=== PATIENT | male | born 1995 | race Caucasian/White ===

== ENCOUNTER 2022-08-09 17:43 | Emergency (ER) | payer OTHER ==
[~2022-08-09] VITALS: Ht 175.3 cm; Wt 74.3 kg
--- NOTE | 2022-08-10 11:35 | EKG ---
[facility] [address] [facility] [place] [address] Signed Normal sinus rhythm with sinus arrhythmia Normal ECG No previous ECGs available Confirmed by MARTHA ALEXANDRE MD ([id number]) on 08/10/2022 11:35:09 AM Electronically Signed By: MARTHA ALEXANDRE MD 08/10/22 1135 PATIENT NAME: MEGHAN DEAN Electrocardiogram DATE OF : [birth year] PHYSICIAN: MARTHA ALEXANDRE MD REPORT #: [id number] REPORT IS CONFIDENTIAL AND NOT TO BE RELEASED WITHOUT AUTHORIZATION
== END 2022-08-09 20:45 | disposition home or self-care (01) ==
LOC: ED 17:43
DX: R00.2 Palpitations (principal); R07.89 Other chest pain; K21.9 Gastro-esophageal reflux disease without esophagitis
CPT/HCPCS: 36415; 71045; 80053; 83735; 84484; 85025; 85379; 86140; 93005; 93010; 99285-25

== ENCOUNTER 2023-12-02 07:34 | Day surgery (SDC) | payer BC ==
[~2023-12-02] VITALS: Ht 175.3 cm; Wt 72.7 kg
[~2023-12-02 07:34] MED LIST: ANUSOL-HC25 MG PR; IBLOOD GLUCOSE TEST STRIP 1 EA TEST VI PRN; LACTATED RINGER'S 1,000 ML IV SCH; LIDOCAINE HCL 1% 5 ML SDV INJ ONE; MAGNESIUM400 MG PO; MIDAZOLAM HCL 5 MG/5 ML VIAL IV PRN; MIRALAX17 GM PO; MULTIPLE VITAM1 EAC2 PO; OMEGA 3 1,0001 EACH PO; fentaNYL citrate 100 MCG/2 ML VIAL IV PRN
[2023-12-02 07:55] VITALS: BP 128/67
--- NOTE | 2023-12-02 08:28 | NUR ---
0810-PATIENT FEELING DIZZY AND HOT WITH IV START. HOB LOWERED AND COOL CLOTH APPLIED TO FOREHEAD. 0825-PATIENT FEELING BETTER. HOB ELEVATED. COOL CLOTH ON FOREHEAD. CALL LIGHT WITHIN REACH. NO OTHER NEEDS AT THIS TIME.
--- NOTE | 2023-12-02 08:55 | NUR ---
0810-PATIENT STATES FEELING FINE. NO OTHER NEEDS AT THIS TIME. AT BEDSIDE.
[2023-12-02] MEDS ORDERED: MIDAZOLAM HCL 5 MG/5 ML VIAL ONE (09:08)
[2023-12-02] MEDS ORDERED: fentaNYL citrate 100 MCG/2 ML VIAL ONE (09:09)
--- NOTE | 2023-12-02 09:55 | NUR ---
12/02/23 0955 Jennifer Day 0948 PT TO PACU ALERT AND AWAKE DENIES PAIN, PT ASKING FOR HIS GLASSES. PT TAKING SIPS OF WATER TOLERATES WELL.
[2023-12-02 10:13] VITALS: BP 118/98
--- NOTE | 2023-12-02 10:30 | OR ---
[facility] [address] [place], [place] [address] Signed DATE OF OPERATION: 12/02/2023 SURGEON: Demario Mayers MD PREOPERATIVE DIAGNOSES: 1. Chronic recurring posterior midline anal fissure. 2. Irritable bowel syndrome with constipation and diarrhea. 3. Intermittent rectal bleeding with bowel movements. POSTOPERATIVE DIAGNOSES: 1. Chronic healed posterior midline anal fissure. 2. Minimal internal hemorrhoids. PROCEDURE: Colonoscopy with cold biopsies of the cecum, terminal ileum x2, right colon, transverse colon, left colon, sigmoid colon and rectum. ESTIMATED BLOOD LOSS: None. INDICATIONS: Meghan is a 28-year-old gentleman, who was asked to see me for a colonoscopy. He has had a chronic recurring posterior midline anal fissure. He describes a sentinel pile, but I did not see that today. He has been online reading and made himself very knowledgeable. He has a conservative regimen that he follows that seems to work out very nicely. He has also convinced himself that he has irritable bowel syndrome alternating with constipation and diarrhea. He still has some intermittent rectal bleeding. He is also worried about Crohn's disease having read that on the Internet. He has been through lidocaine, Anusol, MiraLAX and nitroglycerin ointment. We can no longer get diltiazem ointment here in [place], [place]. To his knowledge, he has never had a Botox injection. He was asked to see me for a colonoscopy. He said there is no family history of colon cancer, polyps or inflammatory bowel disease. In the office, I had given him a pamphlet on colonoscopy. We reviewed the nature of the test. There is risk including, but not limited to gas bloating, crampy abdominal pain, bleeding, perforation requiring surgery, and missed diagnosis. We also reviewed the need for IV conscious sedation. He had expressed understanding and wished to proceed. DESCRIPTION OF PROCEDURE: Meghan was taken into our endoscopy suite and placed in the left lateral decubitus position. He was given monitored anesthesia care with 10 mg of Versed and 200 mcg of Electronically Signed By: DEMARIO MAYERS MD 12/02/23 1030 PATIENT NAME: MEGHAN DEAN OPERATIVE REPORT DATE OF : [birth year] REPORT #: [id number] PHYSICIAN: DEMARIO MAYERS MD PCP: TESHA CHING PA-C REPORT IS CONFIDENTIAL AND NOT TO BE RELEASED WITHOUT AUTHORIZATION [facility] [address] [place], [place] [address] Signed fentanyl. We used our colonoscope to look at the anus with gentle traction sure enough he has a chronic but healed posterior midline anal fissure. There is really no sentinel pile. He has good sphincter tone. There were no masses. After this, the adult colonoscope was introduced and advanced under direct visualization of the camera into the cecum itself. His prep was quite excellent. We turned the camera and went up to the terminal ilium about 10 to 15 cm. We took pictures throughout for photodocumentation. We went ahead and took cold biopsies x2 in the terminal ileum. We then took additional biopsies throughout the cecum, right colon, transverse colon, left colon, sigmoid colon, and mid right colon. There were no polyps. There were no inflammatory changes. There was no diverticulosis. Once in the rectum, the scope was retroflexed and really he has very minimal internal hemorrhoid tissue. After this, the gas was suctioned out and the colonoscope removed. Meghan tolerated the procedure quite well. RECOMMENDATIONS: I will see Meghan back in my office in 7 to 14 days to review his results. Demario Mayers MD ALB/MODL /[id number] cc: MD Tesha Cota PA-C Copies: DEMARIO MAYERS MD, CHLOE K PA-C ~ Electronically Signed By: DEMARIO MAYERS MD 12/02/23 1030 PATIENT NAME: MEGHAN DEAN OPERATIVE REPORT DATE OF : [birth year] REPORT #: [id number] PHYSICIAN: DEMARIO MAYERS MD PCP: TESHA CHING PA-C REPORT IS CONFIDENTIAL AND NOT TO BE RELEASED WITHOUT AUTHORIZATION
--- NOTE | 2023-12-04 16:42 | PATH ---
[facility] [address] [facility] [place], [place] [address] Signed SPECIMEN(S): A CECUM COLON BIOPSY SPECIMEN(S): B TERMINAL ILEUM SPECIMEN(S): C ASCENDING COLON BIOPSY SPECIMEN(S): D TRANSVERSE COLON BIOPSY SPECIMEN(S): E DESCENDING COLON BIOPSY SPECIMEN(S): F SIGMOID COLON BIOPSY SPECIMEN(S): G RECTUM SPECIMEN SOURCE: A. CECUM COLON BIOPSY B. TERMINAL ILEUM C. ASCENDING COLON BIOPSY D. TRANSVERSE COLON BIOPSY E. DESCENDING COLON BIOPSY F. SIGMOID COLON BIOPSY G. RECTUM CLINICAL HISTORY: Anal fissure, IBS, rectal bleeding/diarrhea FINAL PATHOLOGIC DIAGNOSIS: A. Cecum colon biopsy: - Polypoid fragment of benign colonic mucosa, negative for pathologic inflammation or epithelial dysplasia. B. Terminal ileum, biopsy: - Benign small bowel-type mucosa, negative for specific diagnostic abnormality. C. Ascending colon biopsy: - Benign colonic mucosa, negative for specific diagnostic abnormality. D. Transverse colon biopsy: - Benign colonic mucosa, negative for specific diagnostic abnormality. E. Descending colon biopsy: - Benign colonic mucosa, negative for specific diagnostic abnormality. F. Sigmoid colon biopsy: - Benign colonic mucosa, negative for specific diagnostic abnormality. G. Rectum, biopsy: - Benign colonic mucosa, negative for specific diagnostic abnormality. JVR:smn MICROSCOPIC EXAMINATION: Histologic sections of all submitted blocks are examined by light microscopy. PATIENT NAME: MEGHAN DEAN PATHOLOGY DATE OF : [birth year] REPORT #: [id number] PHYSICIAN: VERN ARIZMENDI PCP: EDITA CHING PA-C REPORT IS CONFIDENTIAL AND NOT TO BE RELEASED WITHOUT AUTHORIZATION [facility] [address] [place], [place] [address] Signed These findings, together with the gross examination, support the pathologic diagnosis. GROSS DESCRIPTION: A. The specimen, labeled and designated "[place], cecum colon biopsy," is received in formalin and consists of one houser soft tissue fragment, 0.2 cm. Entirely submitted in (A1). B. The specimen, labeled and designated "[place], terminal ileum biopsy," is received in formalin and consists of two houser soft tissue fragments, ranging from 0.3-0.4 cm. Entirely submitted in (B1). C. The specimen, labeled and designated "[place], ascending colon biopsy," is received in formalin and consists of one houser soft tissue fragment, 0.3 cm. Entirely submitted in (C1). D. The specimen, labeled and designated "[place], transverse colon biopsy," is received in formalin and consists of one houser soft tissue fragment, 0.3 cm. Entirely submitted in (D1). E. The specimen, labeled and designated "[place], descending colon biopsy," is received in formalin and consists of one houser soft tissue fragment, 0.3 cm. Entirely submitted in (E1). F. The specimen, labeled and designated "[place], sigmoid colon biopsy," is received in formalin and consists of one houser soft tissue fragment, 0.3 cm. Entirely submitted in (F1). G. The specimen, labeled and designated "[place], rectum biopsy," is received in formalin and consists of one houser soft tissue fragment, 0.2 cm. Entirely submitted in (G1). VB (under the direct supervision of a pathologist) The Gross Description was prepared using a voice recognition system. The report was reviewed for accuracy; however, sound-alike word errors, addition and/or deletions may occur. If there is any question about this report, please contact Client Services. PERFORMING LABORATORY: Technical component was performed by [facility], [address] [place] [id number] (CLIA# [id number]). Professional interpretation was performed by [facility] - [facility], [address] [place], [place] [address]., [place] [address] (CLIA#: [id number]). Diagnostician: Elías Couch MD Pathologist Electronically Signed 12/04/2023 PATIENT NAME: MEGHAN DEAN PATHOLOGY DATE OF : [birth year] REPORT #: [id number] PHYSICIAN: VERN PATHOLOGY PCP: EDITA CHING PA-C REPORT IS CONFIDENTIAL AND NOT TO BE RELEASED WITHOUT AUTHORIZATION [facility] [address] [place] [address] [place], [place] [address] Signed Copies: ~ PATIENT NAME: MEGHAN DEAN PATHOLOGY DATE OF : [birth year] REPORT #: [id number] PHYSICIAN: VERN ARIZMENDI PCP: EDITA CHING PA-C REPORT IS CONFIDENTIAL AND NOT TO BE RELEASED WITHOUT AUTHORIZATION
== END 2023-12-02 10:20 | disposition home or self-care (01) ==
LOC: OPS 07:34 → DS 07:34 → OPS 10:20
PROVIDERS: ATTEND Colon & Rectal Surgery
PROC: 0DBL8ZX Excision of Transverse Colon, Via Natural or Artificial Opening Endoscopic, Diagnostic (ICD-10-PCS; 2023-12-02)
PROC: 0DBN8ZX Excision of Sigmoid Colon, Via Natural or Artificial Opening Endoscopic, Diagnostic (ICD-10-PCS; 2023-12-02)
PROC: 0DBF8ZX Excision of Right Large Intestine, Via Natural or Artificial Opening Endoscopic, Diagnostic (ICD-10-PCS; 2023-12-02)
PROC: 0DBG8ZX Excision of Left Large Intestine, Via Natural or Artificial Opening Endoscopic, Diagnostic (ICD-10-PCS; 2023-12-02)
PROC: 0DBB8ZX Excision of Ileum, Via Natural or Artificial Opening Endoscopic, Diagnostic (ICD-10-PCS; 2023-12-02)
PROC: 0DBH8ZX Excision of Cecum, Via Natural or Artificial Opening Endoscopic, Diagnostic (ICD-10-PCS; principal; 2023-12-02 09:00)
DX: K60.1 Chronic anal fissure (principal); K58.1 Irritable bowel syndrome with constipation; K58.0 Irritable bowel syndrome with diarrhea; K64.8 Other hemorrhoids; E78.5 Hyperlipidemia, unspecified
CPT/HCPCS: 99153; G0500; J2250; J3010; J7121